=== PATIENT | male | born 1960 | race Caucasian/White ===

== ENCOUNTER → 2018-09-30 | Outpatient (CLI) | payer BC, OTHER ==
[~2018-09-30] VITALS: Ht 182.9 cm; Wt 94.3 kg
[~2018-09-30] MED LIST: BAYER CHEWABLE81 MG PO; COREG25 MG PO; HYDROCHLOROTH12.5 M1 PO; LIPITOR40 MG PO; LISINOPRIL40 MG PO; OMEPRAZOLE 20 M20 M1 PO; PLAVIX 75 MG TA75 M1 PO
--- NOTE | ~2018-09-30 | HPC ---
[facility] [place] [address] [place] [address] PAIN MANAGEMENT CONSULTATION Name: SCOTT METZ Room #: REG MARY Cassandra#: [id number] Admission: 09/30/18 ������������������ Attend Phys: Bahman Harris MD Discharge: ������������������ Date of : 58 Report #: [id number] THIS REPORT FOR: //name// CC: Dr. Ismael Harris DATE OF SERVICE: 09/30/2018 CHIEF COMPLAINT: Pain radiating down the anterior thigh. Pain also in the right hip. HISTORY OF PRESENT ILLNESS: The patient is a pleasant 58-year-old who is here today at the request of Dr. Ismael Cornelius for evaluation of pain radiating through his right leg. Pain began shortly after he had a right femoral access for cardiac catheterization in 2018. He was found to have significant multivessel coronary artery disease and later was treated with 7 stents at [facility]. Stents were placed through the right radial artery. Following the cardiac procedures, he had pain in his right leg. He also had pain in his right arm, which resolved with the use of cannabis oil. At that time, he was living in [place] and the oil that he was using had both CBD and Delta 9 THC. He says that within a week after using it on his right arm, his arm was improved; not so much for the right leg, which has been bothersome over the course of the last 2 years. He describes the leg is going numb. He has a sharp pain and he cannot abduct his hip in the sitting position or when lying flat. He has a lot of pain when he lies in bed at night and also even in his recliner, the pain radiating through the groin and into the anterior thigh. It does not go much below the knee. Pain is made worse with walking or prolonged sitting. Medications, Tylenol and occasional Advil. The interaction between nonsteroidal anti-inflammatory drugs and the coagulation cascade was discussed. He is at some risk by using Advil in combination with the Plavix, but uses it infrequently. He does use Tylenol very effectively. He took 2 Tylenol and says that he had over 50% reduction in pain and this has been consistent. Pain score was 7 before and it is nearly gone this morning after Tylenol! He has had an MRI, which was reviewed. The MRI shows mild generalized bulging of disks at L2-L3, L3-L4, L4-L5 and L5-S1. There is very mild right L3-L4 right neural foraminal stenosis. This could potentially cause some radiating pain into the right thigh, involving the L3 nerve root. This appears to be modest and mild at best. There is some additional narrowing as well at other levels, [address] [address] PAIN MANAGEMENT CONSULTATION Name: SCOTT METZ Room #: REG MARY [place]#: [id number] Admission: 09/30/18 ������������������ Attend Phys: Bahman Harris MD Discharge: ������������������ Date of : 58 Report #: [id number] also considered to be mild. MEDICATIONS: Hydrochlorothiazide, omeprazole, Plavix, carvedilol, lisinopril, atorvastatin, Millicent Aspirin and Tylenol. ALLERGIES: None. PAST MEDICAL HISTORY: Significant for coronary artery disease and vasculopathy. He has a history of hypertension. He has no pacemaker or defibrillator. PAST SURGICAL HISTORY: He lists his only operation as the cardiac stents. 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 For the last 10 years, he has been in a craft superintendent role and is not doing a lot of heavy lifting. He is . He smokes a half a pack of cigarettes a day and has smoked for 40 years. He is making efforts to quit and this was reinforced once again not only for cardiovascular reasons, but for pain reasons. He drinks alcohol only once a month or so. REVIEW OF SYSTEMS: Completed by the patient, describes heart trouble as listed above, shortness of breath, dyspnea on exertion, frequent urination, kidney stones and sexual difficulties. He bruises easily due to his Plavix. PHYSICAL EXAMINATION: GENERAL: He is really a pleasant, outgoing yumiko. He moves easily from a sitting to standing position, but does have some difficulty straightening up as he walks. His gait is antalgic for sure. He favors his right leg. HEENT: Within normal limits. Pupils are equal, round and reactive to light. EOMs are intact. Mucous membranes are moist. NECK: Supple. CHEST: Clear to auscultation, with no wheezing noted. CARDIAC: Rhythm was regular. I could not appreciate a murmur. ABDOMEN: Soft. MUSCULOSKELETAL: Examination of the spine reveals normal alignment. He has good range of motion in flexion, extension, [id number] tilt and rotation, without exacerbation of radiculopathy. He has pain in the sitting position with straight leg raising, but it radiates into the anterior thigh. This pain is reproduced as well with hip flexion in the sitting position. Straight leg raising in the supine position reproduces pain in the groin, radiating to the anterior thigh, but no further. Left leg is normal, other than some hamstring tightness. Deep tendon reflexes are diminished bilaterally at the knees and ankles with only trace noted. Sensation is intact. I was able to palpate distal pulses in both lower extremities at the dorsalis pedis. The most notable finding is pain in the right hip with internal and external [facility] [address] [place] [address] PAIN MANAGEMENT CONSULTATION Name: SCOTT METZ Room #: REG BASIAJohanny Trujillo#: [id number] Admission: 09/30/18 ������������������ Attend Phys: Bahman Harris MD Discharge: ������������������ Date of : 58 Report #: [id number] rotation. The Sabine test causes significant pain radiating through the groin and anterior thigh. IMPRESSION: Pain radiating from the right groin into the anterior thigh with weakness. This could certainly be radiculopathy and he has mild stenosis at L3-L4. My diagnosis, however, is hip arthropathy by physical exam. I have ordered hip x-rays and a pelvic x-ray. I ordered both sides so we can compare. He has significant pain with internal and external rotation as well as pain with Sabine, would suggest away from radiculopathy. It is also possible that he might have some irritation of the femoral nerve from his cardiac catheterization performed 2 years ago, that is around the time this all started. This is unusual, but not unseen consequence of urgent placement of a femoral artery sheath. An EMG would be necessary to help with diagnosis here. Plan is for me to review the hip x-rays and discuss. He will continue to take Tylenol. We discussed further treatments for hip arthropathy. He is not a big injection yumiko, but a hip injection could provide both diagnostic and therapeutic information. We reviewed our good fortune of living in a time when a hip replacement can be used to treat a severely arthritic hip. Followup visit planned by phone. ��������������������������������������������� ���������������������������������������� By: ��������������������������������������������� [id number] Bahman Harris MD /nt
[2018-09-30 11:10] VITALS: BP 142/83
--- NOTE | 2018-09-30 11:24 | NUR ---
Pain Clinic Assessment: 1. History of Osteoarthritis: Not Applicable History of Rheumatoid Arthritis: Not Applicable 2. Height: 6 ft. 0 in. 182.9 cm. Weight: 208.0 lb. oz. 94.348 kg. Patient's BMI: 28.2 3. Vital Signs: BP: 142/83 Pulse: 56 Resp: 16 Temp: 02 Sat: 97 ECG Mon: 4. Pain Intensity: 7 5. Fall Risk: Dizziness: N Needs help standing or walking: N Fallen in the last 3 months: N Fall risk comments: 6. Patient on Blood Thinner: Clopidogrel Bisulf(Plavix 7. History of Hypertension: Y 8. Opioid Therapy greater than 6 weeks: N Opiate Contract Signed: 9. Risk Assessment Tool Provided: 10. Functional Assessment Tool: 11. Recreational Drug Use: Drug Type: Tobacco Use: Current Every Day Smoker Tobacco Type: Cigarettes Amount or Packs/day: 1/2 pack How Many Years: 40 Alcohol Use: No Frequency: Quant:
== END ==
LOC: PAIN 10:05
DX: M16.0 Bilateral primary osteoarthritis of hip (principal); I25.10 Atherosclerotic heart disease of native coronary artery without angina pectoris; M25.751 Osteophyte, right hip; I10 Essential (primary) hypertension; Z79.899 Other long term (current) drug therapy